=== PATIENT | male | born 1955 | race Caucasian/White ===

== ENCOUNTER 2016-11-03 08:33 | Emergency (ER) | payer OTHER ==
[2016-11-03] MEDS ORDERED: Lactated Ringers 2,000 ML IV ONE (09:10)
--- NOTE | 2016-11-03 09:10 | EDM.PDOC ---
ED HPI GENERAL MEDICAL PROBLEM - General Chief Complaint: General Stated Complaint: DEHYDRATED Time Seen by Provider: 11/03/16 09:01 - History of Present Illness INITIAL COMMENTS - FREE TEXT/NARRATIVE: 61-year-old male presents emergency room feeling dehydrated. Patient thinks he's getting over an illness. The patient this last developed chills and some nausea occasional vomiting. On Thursday and Thursday had intermittent episodes of significant chills and shakes. He has not had much to eat or drink since the onset of this illness he's been nauseated but has had minimal vomiting. Patient really denies any pain, he's had no breathing difficulties no shortness of breath no chest pain and really no abdominal discomfort. He has no joint pain. After his shaking spells couple days ago he did have some discomfort in his muscles but this did resolve. - Related Data Allergies Allergy/AdvReac Type Severity Reaction Status Date / Time No Known Allergies Allergy Verified 11/03/16 08:57 Home Meds: Home Meds Losartan [Cozaar] 100 mg PO DAILY 11/03/16 [History] metFORMIN [Glucophage] 500 mg PO BIDMEALS 11/03/16 [History] ED ROS GENERAL - Review of Systems Review Of Systems: See Below Constitutional: Reports: fever, chills, night sweats, decreased appetite HEENT: Reports: No symptoms Respiratory: Reports: No Symptoms Cardiovascular: Reports: No symptoms Endocrine: Reports: no symptoms GI/Abdominal: Reports: Decreased appetite, Nausea, Vomiting. Denies: Constipation, Diarrhea Skin: Denies: change in hair/nails Neurological: Reports: Dizziness (His dizziness is brought on by change of position). Denies: Confusion, Headache Hematologic/Lymphatic: Reports: no symptoms ED EXAM, GENERAL - Physical Exam Exam: See Below Exam Limited By: No limitations General Appearance: alert, no apparent distress, other (Early on his blood pressures were in the 90s as was his pulse) Head: atraumatic, normocephalic Neck: normal inspection, supple, non-tender, full range of motion. No: lymphadenopathy (L), lymphadenopathy (R) Respiratory/Chest: no respiratory distress, lungs clear, normal breath sounds Cardiovascular: regular rate, rhythm, no edema, no murmur GI/Abdominal: normal bowel sounds, soft, non tender. No: rebound, tender Extremities: normal inspection, no pedal edema Neurological: alert, oriented, normal cognition Psychiatric: normal affect, normal mood Skin Exam: Warm, Dry, Intact Course - Vital Signs Last Recorded V/S: Last Vital Signs Temp 36.6 C 11/03/16 08:53 Pulse 97 11/03/16 11:58 Resp 28 H 11/03/16 11:58 BP 105/80 11/03/16 11:58 Pulse Ox 98 11/03/16 11:58 - Orders/Labs/Meds Orders: Active Orders 24 hr Category Date Time Status Chest 1V Frontal [CR] Stat Exams 11/03/16 14:44 Taken CULTURE BLOOD [BC] Stat Lab 11/03/16 13:55 Received CULTURE BLOOD [BC] Stat Lab 11/03/16 13:55 Received Lactated Ringers [Ringers, Lactated] 1,000 ml Med 11/03/16 15:11 Active IV ONETIME Piperacillin/Tazobactam [Zosyn] 3.375 gm Med 11/03/16 15:15 Active Sodium Chloride 0.9% [Normal Saline] 100 ml IV ONETIME Blood Culture x2 Reflex Set [OM.PC] Stat Oth 11/03/16 13:13 Ordered Medication Orders Lactated Ringer's (Ringers, Lactated) 1,000 mls @ 150 mls/hr IV ONETIME ONE Stop: 11/03/16 21:50 Last Admin: 11/03/16 15:12 Dose: 150 mls/hr Piperacillin Sod/Tazobactam (Sod 3.375 gm/ Sodium Chloride) 100 mls @ 25 mls/ hr IV ONETIME ONE Stop: 11/03/16 19:14 Last Admin: 11/03/16 15:29 Dose: 25 mls/hr Labs: Laboratory Tests 11/03/16 11/03/16 11/03/16 Range/Units 09:20 09:20 09:33 WBC 8.09 (4.23-9.07) K/mm3 RBC 5.39 (4.63-6.08) M/mm3 Hgb 14.8 (13.7-17.5) gm/L Hct 43.4 (40.1-51.0) % MCV 80.5 (79.0-92.2) fl MCH 27.5 (25.7-32.2) pg MCHC 34.1 (32.2-35.5) g/dl RDW Std Deviation 43.8 (35.1-43.9) fL Plt Count 41 L (163-337) K/mm3 MPV 11.8 (9.4-12.3) fl Neutrophils % (Manual) 50 (40-60) % Band Neutrophils % 32 H (0-10) % Lymphocytes % (Manual) 13 L (20-40) % Atypical Lymphs % 0 % Monocytes % (Manual) 5 (2-10) % Eosinophils % (Manual) 0 L (0.8-7.0) % Basophils % (Manual) 0 L (0.2-1.2) Differential Comment See note Toxic Granulation 1+ slight Platelet Estimate See note RBC Morph Comment Normal Sodium 134 L (136-145) mEq/L Potassium 3.7 (3.5-5.1) mEq/L Chloride 100 (98-107) mEq/L Carbon Dioxide 20 L (21-32) mEq/L Anion Gap 17.7 H (5-15) BUN 26 H (7-18) mg/dL Creatinine 2.2 H (0.7-1.3) mg/dL Est Cr Clr Drug Dosing 41.00 mL/min Estimated GFR (MDRD) 31 (>60) mL/min BUN/Creatinine Ratio 11.8 L (14-18) Glucose 93 (80-115) mg/dL Lactic Acid (0.4-2.0) mmol/L Calcium 8.5 (8.5-10.1) mg/dL Total Bilirubin 4.1 H (0.2-1.0) mg/dL Direct Bilirubin 3.70 H (0.0-0.2) mg/dl GGT 57 (15-85) U/L AST 54 H (15-37) U/L ALT 87 H (16-63) U/L Alkaline Phosphatase 209 H (46-116) U/L Total Protein 6.0 L (6.4-8.2) g/dl Albumin 2.4 L (3.4-5.0) g/dl Globulin 3.6 gm/dL Albumin/Globulin Ratio 0.7 L (1-2) Lipase 187 (73-393) U/L 11/03/16 Range/Units 13:34 WBC (4.23-9.07) K/mm3 RBC (4.63-6.08) M/mm3 Hgb (13.7-17.5) gm/L Hct (40.1-51.0) % MCV (79.0-92.2) fl MCH (25.7-32.2) pg MCHC (32.2-35.5) g/dl RDW Std Deviation (35.1-43.9) fL Plt Count (163-337) K/mm3 MPV (9.4-12.3) fl Neutrophils % (Manual) (40-60) % Band Neutrophils % (0-10) % Lymphocytes % (Manual) (20-40) % Atypical Lymphs % % Monocytes % (Manual) (2-10) % Eosinophils % (Manual) (0.8-7.0) % Basophils % (Manual) (0.2-1.2) Differential Comment Toxic Granulation Platelet Estimate RBC Morph Comment Sodium (136-145) mEq/L Potassium (3.5-5.1) mEq/L Chloride (98-107) mEq/L Carbon Dioxide (21-32) mEq/L Anion Gap (5-15) BUN (7-18) mg/dL Creatinine (0.7-1.3) mg/dL Est Cr Clr Drug Dosing mL/min Estimated GFR (MDRD) (>60) mL/min BUN/Creatinine Ratio (14-18) Glucose (80-115) mg/dL Lactic Acid 7.7 H (0.4-2.0) mmol/L Calcium (8.5-10.1) mg/dL Total Bilirubin (0.2-1.0) mg/dL Direct Bilirubin (0.0-0.2) mg/dl GGT (15-85) U/L AST (15-37) U/L ALT (16-63) U/L Alkaline Phosphatase (46-116) U/L Total Protein (6.4-8.2) g/dl Albumin (3.4-5.0) g/dl Globulin gm/dL Albumin/Globulin Ratio (1-2) Lipase (73-393) U/L Meds: Medications Generic Name Dose Route Start Last Admin Trade Name Freq PRN Reason Stop Dose Admin Lactated Ringer's 1,000 mls @ 150 mls/hr 11/03/16 15:11 11/03/16 15:12 Ringers, Lactated IV 11/03/16 21:50 150 mls/hr ONETIME ONE Administration Piperacillin Sod/Tazobactam 100 mls @ 25 mls/hr 11/03/16 15:15 11/03/16 15:29 Sod 3.375 gm/ Sodium Chloride IV 11/03/16 19:14 25 mls/hr ONETIME ONE Administration Discontinued Medications Generic Name Dose Route Start Last Admin Trade Name Afshin PRN Reason Stop Dose Admin Acetaminophen 650 mg 11/03/16 13:17 11/03/16 13:29 Tylenol Solution PO 11/03/16 13:18 Not Given ONETIME ONE Fentanyl 50 mcg 11/03/16 13:20 11/03/16 13:26 Sublimaze IVPUSH 11/03/16 13:21 50 mcg ONETIME ONE Administration Lactated Ringer's 2,000 mls @ 999 mls/hr 11/03/16 09:10 11/03/16 09:25 Ringers, Lactated IV 11/03/16 11:10 999 mls/hr .BOLUS ONE Administration Lactated Ringer's Confirm 11/03/16 10:29 11/03/16 10:38 Ringers, Lactated Administered 11/03/16 10:30 Not Given Dose 1,000 mls @ as directed .ROUTE .STK-MED ONE Lactated Ringer's 1,000 mls @ 1,000 mls/hr 11/03/16 10:45 11/03/16 10:38 Ringers, Lactated IV 11/03/16 11:44 1,000 mls/hr ONETIME ONE Administration Lactated Ringer's 1,000 mls @ 999 mls/hr 11/03/16 11:35 11/03/16 11:38 Ringers, Lactated IV 11/03/16 12:35 999 mls/hr .BOLUS ONE Administration Lactated Ringer's 1,000 mls @ 999 mls/hr 11/03/16 13:16 11/03/16 13:00 Ringers, Lactated IV 11/03/16 14:16 999 mls/hr .BOLUS ONE Administration Ondansetron HCl 4 mg 11/03/16 12:14 11/03/16 12:26 Zofran IVPUSH 11/03/16 12:15 4 mg ONETIME ONE Administration Ondansetron HCl 4 mg 11/03/16 13:22 11/03/16 13:26 Zofran IVPUSH 11/03/16 13:23 4 mg ONETIME ONE Administration - Re-Assessments/Exams Free Text/Narrative Re-Assessment/Exam: 11/03/16 13:14 He's received 3 L in for the most part felt much better well he thinks he might be a lymphoid in the near future. He was reevaluated at 15 minutes ago but since that time he developed chills and shakes his temperature was 99 will add blood cultures and a lactic acid this point his lab work is somewhat concerning his white count is 8050% neutrophils 32% bands 13% lymphs 13%. Chemistries are concerning BUN is elevated at 26 creatinine 2.2 total bilirubin is 4.1 direct in 3.7 GGT 57 AST 54 ALT 87 alkaline phosphatase 209 total proteins were low at 6 albumin 2.4 globulin 3.6 lipase 187 he has not been able to get urine on him because he has not been able to go yet. With the patient showing like this we' ll obtain blood cultures and a lactic acid his blood pressures responded nicely to the fluids. At this point the patient is chilled shivering temperature 90.9 degrees his pulse is gone up to 120s 130s blood pressure has stayed up and gone up perhaps due to artifact from the shivering. We will give him Tylenol but he thinks she' s to throw up so we'll hold this off we'll give him a light dose of fentanyl to see if we can get him more comfortable. 11/03/16 15:37 It took us a while to find a accepting hospital but eventually [facility] [place] was willing to take the patient case discussed in detail with Dr. Alvarado area the patient will be started on Zosyn. He recommends 3.375 mg with his renal insufficiency and they will dose adjust as needed. Departure - Departure Time of Disposition: 15:21 Disposition: DC/Tfer to Acute Hospital 02 Clinical Impression: Sepsis, Renal insufficiency, Hyperbilirubinemia Referrals: Oskar Pat MD [Primary Care Provider] - - My Orders Last 24 Hours: My Active Orders 11/03/16 13:13 Blood Culture x2 Reflex Set [OM.PC] Stat 11/03/16 13:55 CULTURE BLOOD [BC] Stat CULTURE BLOOD [BC] Stat 11/03/16 14:44 Chest 1V Frontal [CR] Stat 11/03/16 15:11 Lactated Ringers [Ringers, Lactated] 1,000 ml IV ONETIME 11/03/16 15:15 Piperacillin/Tazobactam [Zosyn] 3.375 gm Sodium Chloride 0.9% [Normal Saline] 100 ml IV ONETIME - Assessment/Plan Last 24 Hours: My Active Orders 11/03/16 13:13 Blood Culture x2 Reflex Set [OM.PC] Stat 11/03/16 13:55 CULTURE BLOOD [BC] Stat CULTURE BLOOD [BC] Stat 11/03/16 14:44 Chest 1V Frontal [CR] Stat 11/03/16 15:11 Lactated Ringers [Ringers, Lactated] 1,000 ml IV ONETIME 11/03/16 15:15 Piperacillin/Tazobactam [Zosyn] 3.375 gm Sodium Chloride 0.9% [Normal Saline] 100 ml IV ONETIME
[2016-11-03] MEDS ORDERED: Lactated Ringers 1,000 ML ONE (10:29)
[2016-11-03] MEDS ORDERED: Lactated Ringers 1,000 ML IV ONE ×4 (10:45→15:11)
[2016-11-03] MEDS ORDERED: Ondansetron 4 MG/2 ML SDV IVPUSH ONE ×2 (12:14→13:22)
[2016-11-03] MEDS ORDERED: Acetaminophen Susp 325 MG/10.15 ML UD Cup PO ONE (13:17)
[2016-11-03] MEDS ORDERED: fentaNYL 100 MCG/2 ML SDV IVPUSH ONE (13:20)
[2016-11-03] MEDS ORDERED: Piperacillin/Tazobactam 3.375 GM in Sodium Chloride 0.9% 100 ML IV ONE (15:15)
[2016-11-03 16:55] VITALS: BP 114/72
--- NOTE | 2016-11-03 18:04 | CR ---
Chest: Frontal view of the chest was obtained utilizing portable technique. Heart size and mediastinum are normal. Minimal atelectasis is noted within the left lateral costophrenic angle. Lungs otherwise are clear. Bony structures are grossly intact. Impression: 1. Slight atelectasis noted within the lateral left costophrenic angle. 2. Nothing acute is identified on portable chest x-ray. Diagnostic code #2
== END 2016-11-03 16:00 ==
LOC: JD.ED 08:33
DX: A41.50 Gram-negative sepsis, unspecified (principal); N28.9 Disorder of kidney and ureter, unspecified; E80.6 Other disorders of bilirubin metabolism; E86.0 Dehydration; Z79.899 Other long term (current) drug therapy
CPT/HCPCS: 36415; 71010; 80053; 82248; 82977; 83605; 83690; 85025; 87040; 96361; 96365; 96375; 96376; 99285; J2405; J2543; J3010; J7030; J7120; 87077; 87181; 87186; 99284